=== PATIENT | female | born 1985 | race Caucasian/White ===

== ENCOUNTER 2019-01-17 13:22 | Inpatient (IN) | payer OTHER ==
[2019-01-17] MEDS ORDERED: METHYLERGONOVINE 0.2 MG INJ IM ×2 (13:30→20:30)
[2019-01-17] MEDS ORDERED: OXYTOCIN 30 UNITS/LR 500 ML IV ×2 (13:30→20:30)
[2019-01-17] MEDS ORDERED: CEFAZOLIN 2 GM/50 ML (PMX) 50 ML IVPB (13:30)
[2019-01-17] MEDS ORDERED: CARBOPROST 250 MCG INJ IM ×2 (13:30→20:30)
[2019-01-17] MEDS ORDERED: MISOPROSTOL 200 MCG TAB PR ×2 (13:30→20:30)
[2019-01-17 13:54] LABS: ADD MAN DIFF? NO
[2019-01-17 13:58] LABS: BASOPHILS % 0.3 % (0.0-2.0); EOSINOPHILS % 0.7 % (0.0-7.0); HEMATOCRIT 38.8 % (37.0-47.0); HEMOGLOBIN 12.5 g/dl (12.0-16.0); LYMPHOCYTES # 1.5 10^3/ul (0.8-2.9); LYMPHOCYTES % 25.2 % (15.0-51.0); MEAN CORPUSCULAR HEMOGLOBIN 28.1 pg (29.0-33.0); MEAN CORPUSCULAR HGB CONC 32.2 g/dl (32.0-37.0); MEAN CORPUSCULAR VOLUME 87.2 fl (82.0-101.0); MEAN PLATELET VOLUME 11.4 fl (7.4-10.4); MONOCYTE # 0.5 10^3/ul (0.3-0.9); MONOCYTES % 8.5 % (0.0-11.0); NEUTROPHIL # 3.9 10^3/ul (1.6-7.5); NEUTROPHILS % 64.8 % (39.0-77.0); PLATELET COUNT 173 10^3/UL (140-415); RED BLOOD COUNT 4.45 10^6/ul (4.20-5.40); RED CELL DISTRIBUTION WIDTH 13.2 % (11.5-14.5)
[2019-01-17] MEDS: LACTATED RINGER'S 1,000 ML IV ×3 (14:00→20:05)
[2019-01-17 14:18] LABS: PROTIME 12.3 Sec (11.9-14.9)
[2019-01-17 14:19] LABS: PARTIAL THROMBOPLASTIN TIME 25.2 Sec (23.0-35.0)
[2019-01-17 14:46] LABS: RAPID PLASMA REAGIN NONREACTIVE (NR)
[2019-01-17] MEDS: AZITHROMYCIN 500MG/NS (PMX) 250 ML IVPB (15:30)
[2019-01-17] MEDS ORDERED: morphine SULFATE/PF (10 MG/10 ML) INJ (15:32)
[2019-01-17] MEDS ORDERED: OXYTOCIN 10 UNIT INJ (16:10)
[2019-01-17] MEDS ORDERED: MIDAZOLAM 1 MG/ML 2 ML INJ ×2 (16:13→16:16)
[2019-01-17] MEDS ORDERED: METOCLOPRAMIDE 10 MG INJ (16:14)
[2019-01-17] MEDS ORDERED: ONDANSETRON 4 MG INJ (16:14)
[2019-01-17] MEDS ORDERED: DIPHENHYDRAMINE 50 MG INJ (16:19)
[2019-01-17] MEDS ORDERED: NALOXONE (0.4 MG/ML) INJ IV (17:00)
[2019-01-17] MEDS ORDERED: HYDROmorphONE 0.5 MG/0.5 ML SYG IV ×2 (17:00)
[2019-01-17] MEDS ORDERED: ZOLPIDEM 5 MG TAB PO (17:00)
[2019-01-17] MEDS ORDERED: ONDANSETRON 4 MG INJ IV (17:00)
[2019-01-17] MEDS ORDERED: DIPHENHYDRAMINE 50 MG INJ IV ×2 (17:00)
[2019-01-17] MEDS ORDERED: NALBUPHINE HCL (10 MG/1 ML) INJ IV (17:00)
[2019-01-17] MEDS ORDERED: MEPERIDINE 25 MG INJ IV (17:00)
[2019-01-17] MEDS ORDERED: MIDAZOLAM 1 MG/ML 2 ML INJ IV (17:00)
[2019-01-17] MEDS: OXYTOCIN 30 UNITS/LR 500 ML IV ×2 (18:49→20:18)
[2019-01-17] MEDS: KETOROLAC 30 MG INJ IV (19:16)
[2019-01-17] MEDS ORDERED: OXYCODONE/ACETAMINOPHEN (5/325) TAB PO (20:30)
[2019-01-17] MEDS ORDERED: LANOLIN HPA 1 PKT TOP (20:30)
[2019-01-17] MEDS: SENNA/DOCUSATE NA (8.6MG/50MG) TAB PO (21:00)
[2019-01-18] MEDS: KETOROLAC 30 MG INJ IV ×2 (01:41→13:28)
[2019-01-18] MEDS: OXYTOCIN 30 UNITS/LR 500 ML IV (03:12)
[2019-01-18 06:57] LABS: ADD MAN DIFF? NO
[2019-01-18 06:59] LABS: WHITE BLOOD COUNT 11.1 10^3/ul (4.8-10.8)
[2019-01-18 06:59] LABS: BASOPHILS % 0.2 % (0.0-2.0); EOSINOPHILS % 0.4 % (0.0-7.0); HEMATOCRIT 32.6 % (37.0-47.0); HEMOGLOBIN 10.6 g/dl (12.0-16.0); LYMPHOCYTES # 1.1 10^3/ul (0.8-2.9); LYMPHOCYTES % 9.7 % (15.0-51.0); MEAN CORPUSCULAR HEMOGLOBIN 28.6 pg (29.0-33.0); MEAN CORPUSCULAR HGB CONC 32.5 g/dl (32.0-37.0); MEAN CORPUSCULAR VOLUME 88.1 fl (82.0-101.0); MEAN PLATELET VOLUME 11.2 fl (7.4-10.4); MONOCYTE # 0.8 10^3/ul (0.3-0.9); MONOCYTES % 7.4 % (0.0-11.0); NEUTROPHIL # 9.1 10^3/ul (1.6-7.5); NEUTROPHILS % 81.9 % (39.0-77.0); PLATELET COUNT 139 10^3/UL (140-415); RED CELL DISTRIBUTION WIDTH 13.4 % (11.5-14.5)
[2019-01-18] MEDS: SENNA/DOCUSATE NA (8.6MG/50MG) TAB PO ×2 (09:59→21:25)
[2019-01-18] MEDS: LACTATED RINGER'S 1,000 ML IV (12:34)
[2019-01-18] MEDS: OXYCODONE/ACETAMINOPHEN (5/325) TAB PO (16:45)
[2019-01-18] MEDS: IBUPROFEN 800 MG TAB PO (21:25)
[2019-01-19] MEDS: OXYCODONE/ACETAMINOPHEN (5/325) TAB PO ×3 (01:21→16:13)
[2019-01-19] MEDS: IBUPROFEN 800 MG TAB PO ×3 (05:36→21:56)
[2019-01-19] MEDS: SENNA/DOCUSATE NA (8.6MG/50MG) TAB PO ×2 (08:34→21:08)
[2019-01-20] MEDS: IBUPROFEN 800 MG TAB PO ×3 (05:31→21:12)
[2019-01-20] MEDS: DIPHTH/TET/ACEL PERTUSS (ADULT) 0.5 ML VIAL IM* (09:00)
[2019-01-20] MEDS: SENNA/DOCUSATE NA (8.6MG/50MG) TAB PO ×2 (09:45→21:13)
[2019-01-20] MEDS: MAGNESIUM HYDROXIDE 30ML CUP PO (21:12)
[2019-01-21] MEDS: OXYCODONE/ACETAMINOPHEN (5/325) TAB PO ×2 (05:34→09:50)
[2019-01-21] MEDS: IBUPROFEN 800 MG TAB PO ×2 (05:34→13:43)
[2019-01-21] MEDS: SENNA/DOCUSATE NA (8.6MG/50MG) TAB PO (09:47)
== END 2019-01-21 13:34 | disposition home or self-care (01) | DRG 788 ==
LOC: L-D 13:22 → PP1 20:30
PROVIDERS: Obstetrics & Gynecology
PROC: 10D00Z1 Extraction of Products of Conception, Low, Open Approach (ICD-10-PCS; principal; 2019-01-17 12:30)
DX: O34.219 Maternal care for unspecified type scar from previous cesarean delivery (principal); Z3A.39 39 weeks gestation of pregnancy; Z37.0 Single live birth
CPT/HCPCS: 85025; 85610; 85730; 86592; 86850; 86900; 86901; 99464